=== PATIENT | female | born 1960 | race Caucasian/White ===

== ENCOUNTER 2019-07-05 03:19 | Observation (INO) ==
[2019-07-05] MEDS ORDERED: NS 1,000 ML IV ONE (03:38)
[2019-07-05] MEDS ORDERED: ZOFRAN IV ONE (03:38)
[2019-07-05] MEDS ORDERED: TORADOL IV ONE (03:38)
[2019-07-05] MEDS ORDERED: MORPHINE IV ONE (03:38)
[2019-07-05 04:24] LABS: URINE SOURCE CLEAN CATCH
[2019-07-05 04:28] LABS: BASO# 0.04 X1000 (0.0-0.2); BASO% 0.4 % (0.0-0.8); EOS# 0.46 X1000 (0.0-0.7); HEMATOCRIT 41.9 % (37.0-47.0); HEMOGLOBIN 13.9 g/dL (12.0-16.0); IMM GRAN# 0.02 X1000 (0.0-0.04); IMM GRAN% 0.2 % (0.0-0.5); LYMPH# 2.11 X1000 (1.2-3.4); LYMPH% 23.1 % (20.5-51.1); MCH 30.6 PG (27-31); MCHC 33.2 g/dL (33-37); MCV 92.3 FL (81-99); MONO# 0.87 X1000 (0.11-0.59); MONO% 9.5 % (1.7-9.3); MPV 10.1 FL (7.4-10.4); NEUT# 5.64 X1000 (1.4-6.5); NEUT% 61.8 % (42.2-75.2); PLT 226 X1000 (130-400); RBC 4.54 XMIL (4.2-5.4); RDW 12.1 % (11.5-14.5); WBC 9.14 X1000 (4.8-10.8)
[2019-07-05 04:30] LABS: BILIRUBIN URINE NEGATIVE (NEGATIVE); BLOOD URINE NEGATIVE (NEGATIVE); COLOR YELLOW; GLUCOSE URINE NEGATIVE (NEGATIVE); KETONE URINE NEGATIVE (NEGATIVE); LEUKOCYTES URINE NEGATIVE (NEGATIVE); NITRITE URINE NEGATIVE (NEGATIVE); PH URINE 6.5; PROTEIN URINE NEGATIVE (NEGATIVE); TURBIDITY URINE CLEAR (CLEAR); UROBILINOGEN URINE NORMAL (NORMAL)
[2019-07-05 04:31] LABS: UR EPITHELIAL CELLS <10 /HPF (<10); URINE BACTERIA NEGATIVE /HPF; URINE RBC <10 /HPF (<10); URINE WBC <10 /HPF (<10)
[2019-07-05] MEDS ORDERED: BENADRYL IV ONE (04:35)
[2019-07-05] MEDS ORDERED: FLAGYL 500 MG/NS 500 MG/100 ML IVPB IV ONE (04:40)
[2019-07-05] MEDS ORDERED: CIPRO 400 MG/D5W 400 MG/200 ML IVPB IV ONE (04:40)
--- NOTE | 2019-07-05 04:44 | PROVIDER DOCUMENTATION ---
HPI-General Adult - General Chief Complaint: Flank Pain Stated Complaint: BACK PAIN/ABD PAIN Time Seen by Provider: 07/05/19 03:31 Source: patient Allergies/Adverse Reactions: Patient Allergies Allergy/AdvReac Type Severity Reaction Status Date / Time No Known Allergies Allergy Verified 07/05/19 03:29 Home Medications: Home Medication List Medication Instructions Recorded Confirmed Last Taken Type PRAVAstatin [Pravachol] 20 mg PO DAILY 05/08/14 07/05/19 3 Days Ago History ~07/02/19 Citalopram [Celexa] 40 mg PO DAILY 08/30/14 07/05/19 3 Days Ago History ~07/02/19 Amphetamine Salts [Adderall] 20 mg PO DIRECTED 05/01/17 07/05/19 3 Days Ago History ~07/02/19 Clonazepam 1 tab PO HS 05/01/17 07/05/19 07/04/19 History Bupropion HCl [Wellbutrin Xl] 300 mg PO DAILY 07/05/19 07/05/19 3 Days Ago History ~07/02/19 Trazodone [Desyrel] 50 mg PO QHS 07/05/19 07/05/19 07/04/19 History - History of Present Illness -Gen Adult Nature of Presenting Problems: Pt presents with left flank pain, x a couple of days, constant, no radiation, similar to prior diverticulitis, pt denies f/c, bach, cp, sob, cough, n/v/d. Pt is lying in bed in no acute distress. Location of Pain/Injury: reports: abdomen Pain Radiation: reports: flank (L) Quality of Pain: reports: sharp Severity: reports: moderate Onset/Duration: reports: 2 days ago Timing: reports: still present Context/Activities at Onset: reports: none Modifying Factors: improves with: nothing Associated Symptoms: reports: denies symptoms Similar Symptoms Previously?: Yes Recently seen or treated by another doctor?: No Review of Systems - Adult - REVIEW OF SYSTEMS - ADULT Constitutional: reports: no symptoms reported Eyes: reports: no symptoms reported Ears, Nose, Mouth & Throat: reports: no symptoms reported Cardiovascular: reports: no symptoms reported Respiratory: reports: no symptoms reported Gastrointestinal: reports: see HPI Genitourinary: reports: no symptoms reported Musculoskeletal: reports: no symptoms reported Integumentary: reports: no symptoms reported Neurological: reports: no symptoms reported Psychiatric: reports: no symptoms reported Endocrine: reports: no symptoms reported Hematologic/Lymphatic: reports: no symptoms reported Allergic/Immunologic: reports: no symptoms reported All Other Systems: Reviewed and Negative Past History - Adult - PAST MEDICAL HISTORY-ADULT Review of Records: reports: Old Records Reviewed, Nursing Assessment Review, Medications Reviewed, Social history reviewed & non-contributory. Major Childhood Illnesses: reports: denies history Cardiovascular: reports: hyperlipidemia Respiratory: reports: denies history Gastrointestinal: reports: denies history Obstetrical/Gynecological: reports: denies history Genitourinary: reports: denies history Musculoskeletal: reports: denies history Neurological: reports: denies history Psychiatric: reports: anxiety Endocrine/Immune: reports: denies history Other Conditions: reports: denies history - PRIOR SURGERIES/PROCEDURES Surgical/Procedure History: reports: hysterectomy, BTL - IMMUNIZATION STATUS Childhood Immunizations: See Nurse Assessment Flu Vaccine: See Nurse Assessment - FAMILY HISTORY Family History: CVA/TIA, other (brain anur.) Physical Exam-General - PHYSICAL EXAM-ADULT Initial Vital Signs Reviewed: Yes - CONSTITUTIONAL General Appearance: appears well - EYES Eyes: PERRL/EOMI - HEAD, EARS, NOSE, MOUTH & THROAT HENMT: normocephalic/atraumatic - NECK Neck: non-tender - RESPIRATORY Respiratory: lungs clear, no respiratory distress, no accessory muscle use - CARDIOVASCULAR Cardiovascular: regular rate, rhythm - GASTROINTESTINAL (ABDOMEN) Abdominal Exam: normal bowel sounds, non tender, soft, no organomegaly - LYMPHATIC Lymphatic: no adenopathy - MUSCULOSKELETAL Back Exam: normal inspection Extremity: normal range of motion - SKIN Integumentary: normal color - NEUROLOGIC Neurologic: grossly normal - PSYCHIATRIC Psych/Mental Status: normal mood/affect Progress - PLAN OF CARE/RESULTS Progress/Plan/Lab Results: Vital Signs - 8 hr 07/05/19 03:22 Temperature 97.5 F L Pulse Rate 93 H Respiratory Rate 18 Blood Pressure 150/106 O2 Sat by Pulse Oximetry 99 Laboratory Results - last 24 hr 07/05/19 07/05/19 04:10 04:10 WBC 9.14 RBC 4.54 Hgb 13.9 Hct 41.9 MCV 92.3 MCH 30.6 MCHC 33.2 RDW Std Deviation 12.1 Plt Count 226 MPV 10.1 Immature Gran % (Auto) 0.2 Neut % (Auto) 61.8 Lymph % (Auto) 23.1 [place] % (Auto) 9.5 H Eos % (Auto) 5.0 Baso % (Auto) 0.4 Immature Gran # (Auto) 0.02 Neut # (Auto) 5.64 Lymph # (Auto) 2.11 [place] # (Auto) 0.87 H Eos # (Auto) 0.46 Baso # (Auto) 0.04 Urine Source CLEAN CATCH Urine Color YELLOW Urine Turbidity CLEAR Urine pH 6.5 Ur Specific [place] 1.010 Urine Protein NEGATIVE Ur Glucose (Stick) NEGATIVE Ur Ketones (Stick) NEGATIVE Urine Blood NEGATIVE Urine Nitrite NEGATIVE Urine Bilirubin NEGATIVE Urobilinogen Dipstick NORMAL Urine Leukocytes NEGATIVE Urine WBC (Auto) <10 Urine RBC (Auto) <10 U Epithel Cells (Auto) <10 Urine Bacteria (Auto) NEGATIVE Orders Category Date Time Status CT ABDOMEN/PELVIS W/O CONTRAST [CT] Stat Exams 07/05/19 03:38 Taken CBC WITH ELECTRONIC DIFF [HEME] Stat Lab 07/05/19 04:10 Completed COMPREHENSIVE METABOLIC PANEL [CHEM] Stat Lab 07/05/19 04:10 Received LACTATE, PLASMA [CHEM] Stat Lab 07/05/19 04:10 Received LIPASE [CHEM] Stat Lab 07/05/19 04:10 Received UA [URINALYSIS W/POSS RFLX CULT] [URINALYSIS] Stat Lab 07/05/19 04:10 Completed 0.9% Sodium Chloride Inj [Ns] 1,000 ml Med 07/05/19 03:38 Discontinued IV 999 mls/hr Ciprofloxacin 400 mg/D5w IV Now Med 07/05/19 04:40 Ordered Ciprofloxacin 400 mg/D5w [Cipro 400 mg/D5w] 400 mg in 200 ml IV NOW Diphenhydramine [Benadryl] Med 07/05/19 04:35 Discontinued 25 mg IV NOW ONE Flagyl 500 mg IV Now Med 07/05/19 04:40 Ordered Metronidazole 500 mg/Ns [Flagyl 500 mg/Ns] 500 mg in 100 ml IV NOW Ketorolac [Toradol] Med 07/05/19 03:38 Discontinued 30 mg IV NOW ONE Morphine Med 07/05/19 03:38 Discontinued 4 mg IV NOW ONE Ondansetron [Zofran] Med 07/05/19 03:38 Discontinued 4 mg IV NOW ONE Result Diagrams: 09/17/19 04:10 Departure - Departure Date of Disposition Decision: 07/05/19 Time of Disposition Decision: 05:15 DIAGNOSIS: Diverticulitis Disposition: ADMITTED INPATIENT 09 Certified Medical Emergency: Emergent Condition: Stable Referrals and Follow-Ups: Barber Shah MD [Primary Care Provider] - - Critical Care Note This patient required my direct & personal management of CC.: No Attestation - Physician/ LIDIA Attestation Patient care was provided by Advanced Practice Provider:: No The physician spent face to face time with patient:: Yes Advanced Practice Provider documentation review:: Supervising physician onsite and consulted in the evaluation and care of this patient. The physician did have a face to face encounter with the patient.
[2019-07-05 05:19] LABS: AGAP 15; ALB/GLOB RATIO 1.4; ALBUMIN 4.2 g/dL (3.5-5.0); ALKALINE PHOSPHATASE 97 U/L (32-104); BUN 17 mg/dL (8-22); CALCIUM 9.1 mg/dL (8.8-10.2); CHLORIDE 102 mmol/L (98-107); COSMO 289; CREATININE 0.7 mg/dL (0.5-0.9); ESTIMATED GFR > 60; GLUCOSE 77 mg/dL (70-104); GOT 13 U/L (10-30); GPT 9 U/L (10-36); LIPASE 37 U/L (13-60); POTASSIUM 3.8 mmol/L (3.5-5.1); SODIUM 145 mmol/L (136-145); TCO2 28 mmol/L (25-35); TOTAL BILIRUBIN 0.15 mg/dL (0.20-1.00); TOTAL PROTEIN 7.1 g/dL (6.3-8.3)
[2019-07-05] MEDS ORDERED: SODIUM CHLORIDE 0.9% INJ SCH (05:55)
[2019-07-05] MEDS ORDERED: PROTONIX IV SCH (05:55)
[2019-07-05] MEDS ORDERED: FLAGYL 500 MG/NS 500 MG/100 ML IVPB ONE (06:04)
[2019-07-05] MEDS: NS 1,000 ML IV SCH (06:14)
--- NOTE | 2019-07-05 06:24 | HISTORY AND PHYSICAL ---
CHIEF COMPLAINT/HISTORY OF PRESENT ILLNESS: Left abdominal and flank pain since last Thursday, constant with continuing worsening until today when she stopped being able to stand the pain, so she came into the emergency room. Similar to her last bout with diverticulitis. She denies any fever, chills, chest pain, shortness of breath, cough, nausea or vomiting. She did have diarrhea last Thursday. Denied any hematochezia or melena. She has other past medical history of hypertension, hyperlipidemia, anxiety and depression. A CT scan was done in the emergency room that showed diverticulitis with a possible microperforation. She will be admitted for further evaluation and treatment. PAST MEDICAL HISTORY: See HPI. PREVIOUS SURGICAL HISTORY: Hysterectomy, surgery on her ureter. FAMILY HISTORY: Positive for myocardial infarction and brain aneurysm SOCIAL HISTORY: Lives with her . Smokes 1 pack of cigarettes per week. Very occasional alcohol. No illicit drugs. ALLERGIES: No known drug allergies. HOME MEDICATIONS: Adderall 20 mg p.o. p.r.n., Wellbutrin 300 mg p.o. daily, Celexa 40 mg p.o. daily, clonazepam 1 mg p.o. at bedtime, pravastatin 20 mg p.o. daily, trazodone 50 mg p.o. at bedtime. REVIEW OF SYSTEMS: Fourteen-point review of systems conducted with the patient. Pertinent positives listed above in the HPI. All other systems reviewed and found to be negative. PHYSICAL EXAMINATION: VITAL SIGNS: Temperature 97.5, pulse 93, respirations 18, blood pressure 150/106, oxygen saturation 99% on room air. GENERAL: Pleasant 59-year-old female lying in the ER stretcher. Answers all questions appropriately. She is alert and oriented x3. HEENT: Head is atraumatic, normocephalic. Pupils equal, round, reactive to light. Extraocular eye movement is intact. Sclerae are anicteric. Conjunctivae is pink. Oral mucosa is dry. NECK: Supple. No JVD. No thyromegaly. Trachea is midline. No cervical lymphadenopathy. CARDIAC: S1, S2 appreciated. No murmurs, gallops or rubs. LUNGS: Clear to auscultation bilaterally. No rhonchi, wheezes or rales. Symmetric rise and fall with respirations. ABDOMEN: Soft, nondistended, tender in the lower quadrants, especially on the left side. Rebound tenderness noted. No pulsatile mass. No organomegaly. Bowel sounds hypoactive in all 4 quadrants. EXTREMITIES: No clubbing, cyanosis or edema. Two-plus pedal pulses bilaterally. GENITOURINARY: No bladder distention. Patient voids. Otherwise deferred. NEUROLOGICAL: Alert and oriented x3. No focal motor deficits, otherwise nonfocal examination. DIAGNOSTIC DATA: CT of the abdomen showed diverticulitis with possible microperforation. LABORATORY DATA: Grossly normal. Urine unremarkable. ASSESSMENT AND PLAN: 1. Diverticulitis with possible microperforation. Will give Flagyl and Cipro, morphine as needed for pain. N.p.o. at this time. Will consult Dr. Franklin with Surgery as well as Dr. Parsons with Gastroenterology. 2. History of hypertension. Patient was hypertensive on arrival. She is normotensive after he pain is under control. She does not take home medications any more. Will continue to monitor. 3. Hyperlipidemia. Continue statin when patient continues taking p.o. 4. Tobacco use. Smoking cessation was done over with the patient. She states that she is working on quitting. She has cut back and does not need a NicoDerm patch. 5. Further recommendations per the patient's clinical course. Dictated by YIMI Hendricks for José Miguel Vargas MD cc: YIMI Hendricks MD Samuel Gillespie, MD Independent exam was notable for rebound tenderness without any guarding. Answered pt and family member's questions. This could still be managed conservatively. Discussed above plan with PASTORAL WORKER. SAAD
[2019-07-05 07:06] LABS: INR 0.93; PROTIME 12.6 Seconds (11.0-16.0); PTT 36.1 Seconds (22.3-41.8)
--- NOTE | 2019-07-05 07:35 | Diag Imaging Result Doc PS360 ---
EXAM: CT ABDOMEN/PELVIS W/O CONTRAST 07/05/2019 HISTORY: left flank pain TECHNIQUE: This exam was performed using automated exposure control, adjustment of mA or kV according to patient size, and/or use of iterative reconstruction technique. COMMENT: There is no evidence of acute disease in the visualized portion of the chest. There are stones layering dependently in the gallbladder. There is a fair amount of retained gastric contents. The possibility of gastroparesis cannot be excluded and correlation with the patient's history is recommended. The liver is unremarkable given the lack of contrast. There is no evidence of nephrolithiasis. There is some dilatation of the collecting system particularly the renal pelvis on the left. No evidence of ureterolithiasis is present. The urinary bladder is not particularly distended. There is stool throughout the colon. There is diverticulosis in the sigmoid colon and apparent diverticulitis in the distal descending colon. There is some localized paracolic fluid without definite abscess. This was not present on 05/01/2017. IMPRESSION: Distal descending diverticulitis. Electronically signed by Ruslan Kc 07/05/2019 7:32 AM
[2019-07-05] MEDS: MORPHINE IV PRN ×3 (09:57→21:00)
[2019-07-05] MEDS: CELEXA PO SCH (09:58)
[2019-07-05] MEDS: ZOFRAN IV PRN ×3 (09:58→21:00)
[2019-07-05] MEDS: FLAGYL 500 MG/NS 500 MG/100 ML IVPB IV SCH ×2 (11:04→17:35)
--- NOTE | 2019-07-05 13:04 | GENERAL SURGERY CONSULTATION ---
DATE: 07/05/2019 REQUESTING PHYSICIAN: Hospitalist. REASON FOR CONSULTATION: Consult is concerning perforated diverticulitis. HISTORY OF PRESENT ILLNESS: A 59-year-old female with left abdominal pain and left flank pain starting Vincent. Presented to the emergency department with abdominal pain. She had issues with diverticulitis before and has actually had her reimplantation of her ureter on the left side for diverticulitis secondary to a stricture from the diverticulitis. She has been followed by Dr. Farooq for gastroenterology but has not required any kind of surgical intervention. She came in now with worsening pain. A CT scan showed there may be a possible perforation of her descending colon, although it looks contained. She is feeling a little bit better since she was admitted. PAST MEDICAL HISTORY: Includes history of diverticulitis, history of hypertension, hyperlipidemia, anxiety, depression. PAST SURGICAL HISTORY: Includes hysterectomy and ureteral reimplantation. FAMILY HISTORY: Positive for myocardial infarction, brain aneurysm, and issues with colon. SOCIAL HISTORY: Lives with . Current smoker. ALLERGIES: None. HOME MEDICATIONS: In MAR, reviewed. Of note, she is on Cipro and Flagyl. REVIEW OF SYSTEMS: A full 14 systems were reviewed and negative except as specified in the HPI. PHYSICAL EXAMINATION: Vital Signs: The patient is currently afebrile. Her vital signs are stable. General Examination: No acute distress. HEENT: Normocephalic, atraumatic. Pupils equal, round, reactive to light. Mucous membranes moist. Oropharynx benign. Neck: Supple. Trachea midline. Cardiovascular: Regular rate and rhythm. Lungs: Grossly clear. Abdomen: Soft. Tender to palpation in the left lower quadrant and left flank. No peritoneal signs. Extremities: Moves all extremities. Neurologic: Grossly intact. Skin: No signs of jaundice. Vascular: All extremities perfused. LABORATORY: White blood count is normal. There is no left shift. Hematocrit is normal. Remainder of labs are normal. CT scan independently reviewed and radiology report reviewed, and noted above. ASSESSMENT AND PLAN: A 59-year-old female with perforated diverticulitis. 1. Perforated diverticulitis. At this time, I agree with current treatment. She is on intravenous antibiotics, which I agree. She is nothing per oral so we will continue that. I would like to try to get her over this episode without surgery and then have an outpatient colonoscopy with the patient. She has had several episodes and had complications for diverticulitis with ureteral stents so she may need to entertain surgical intervention but I suspect her anatomy is different secondary to reimplantation, so it might be a difficult operation, so we will need to discuss with her extensively as an outpatient but in the meantime, we will again treat her with intravenous antibiotics. 2. Multiple medical comorbidities including hypertension, hyperlipidemia, and previous surgical intervention, does complicate her medical treatment but she is being followed by her primary care physician. We will continue to follow. I appreciate the consult. cc: Scar Garcia MD
--- NOTE | 2019-07-05 14:42 | GASTROENTEROLOGY CONSULTATION ---
DATE: 07/05/2019 PRIMARY PHARMACY ANALYST: Dr. Farooq. REASON FOR CONSULTATION: Diverticulitis. HISTORY OF PRESENT ILLNESS: Ms. Katie Pfeiffer is a 59-year-old woman with past medical history of hyperlipidemia, sleep apnea, chronic migraines, history of anxiety, ADD, and diverticulitis in April of 2012, who presents with 4 days of left lower quadrant pain that she describes as sharp and stabbing. She says she developed acute onset pain up to 10/10 with associated chills 4 days ago, which is similar to her prior presentation of diverticulitis. She denies any nausea, vomiting, chest pain, shortness of breath, fevers, diaphoresis, diarrhea, constipation or rectal bleeding. Her last colonoscopy was in 2013, which was unremarkable for colon lesions. She does have diverticulosis. REVIEW OF SYSTEMS: As per HPI, otherwise 12 point review of systems negative. PAST MEDICAL HISTORY: As per HPI. Other notable history includes a history of hydronephrosis requiring left ureteral stent and surgical repair. PAST SURGICAL HISTORY: Surgical repair of hydronephrosis from obstructive uropathy in the setting of recent diverticulitis in 2011, in the past. FAMILY HISTORY: No family history of GI malignancies. SOCIAL HISTORY: She smokes 1 pack per week. Rare alcohol. No drug use. MEDICATIONS: Citalopram, clonazepam, Adderall, Wellbutrin. She takes NSAIDs rarely p.r.n. ALLERGIES: No known drug allergies. PHYSICAL EXAMINATION: Vital Signs: Temperature is 97.6 degrees, heart rate 65, respiratory rate 18, blood pressure 135/77, O2 saturation 96% on room air. General: Patient is awake, alert, oriented, no acute distress. HEENT: Sclerae anicteric. Moist mucous membranes. Extraocular motor intact. Neck: Supple. No JVD or lymphadenopathy. Cardiac: Regular rate and rhythm. No murmurs, rubs, or gallops. Lungs: Clear to auscultation bilaterally. No wheeze. Abdomen: Soft. Mild tenderness to palpation in the left lower quadrant. No rebound or guarding. Bowel sounds are present. Extremities: No clubbing, cyanosis, or edema. Neurologic: Nonfocal. LABS AND X-RAYS: White count of 9.14, hemoglobin 13.9, platelets of 226. INR 0.93. BMP is normal. UA is negative. CT abdomen and pelvis without contrast shows distal descending diverticulitis. There are some gallstones without acute cholecystitis, some dilation of the renal pelvis on the left. ASSESSMENT AND PLAN: Ms. Katie Pfeiffer is a 59-year-old woman who presents with acute recurrent noncomplicated diverticulitis of the descending colon. She is currently on Cipro and Flagyl. She is on nothing by mouth. She is on antiemetics and proton pump inhibitor. We will stop proton pump inhibitor therapy, start her on clear liquid diet. She has been seen by Surgery, who recommended medical management for now. No indication for repeat colonoscopy post diverticulitis, given she has had a colonoscopy in the past and has been ruled out for colon cancer already. No family history of GI malignancies. Advance diet to clears today. If she tolerates that, we can advance to GI soft tomorrow and probably discharge with a 10-day course of antibiotics. Thank you for this consult. We will follow with you. Please call with any questions or concerns.
--- NOTE | 2019-07-05 16:12 | PROGRESS NOTE ---
DATE: 07/05/2019 SUBJECTIVE: The patient feels better. Pain has improved. OBJECTIVE: Vital Signs: Blood pressure is 108/76, heart rate of 67, respiratory rate 18, temperature 97.9 degrees, satting 97% on room air. Cardiovascular: Regular rate and rhythm. Pulmonary: Bilateral breath sounds. Clear to auscultation. GI: Soft, nontender, nondistended. Bowel sounds are positive. LABORATORY DATA: White count is 9. Really all her labs look okay PROBLEM LIST: Diverticulitis of the descending colon with questionable microperforation. She is pretty constipated too, and no abscess. We will continue antibiotics. She is on Flagyl and presumably Cipro, pain medicine, intravenous fluids. Clinically she is improving. Her diet has been advanced per Dr. Wheeler. Obviously, I do not think she is amenable to colonoscopy at this time due to the risk of perforation, and then I guess she had a recent colonoscopy. cc: Simone Gracia MD
[2019-07-05] MEDS: CIPRO 400 MG/D5W 400 MG/200 ML IVPB IV SCH (18:36)
[2019-07-05] MEDS ORDERED: DESYREL PO SCH (21:00)
[2019-07-05] MEDS ORDERED: KLONOPIN PO SCH (21:00)
[2019-07-05] MEDS: PRAVACHOL PO SCH (21:14)
[2019-07-06] MEDS: NS 1,000 ML IV SCH (00:18)
[2019-07-06] MEDS: FLAGYL 500 MG/NS 500 MG/100 ML IVPB IV SCH ×3 (00:18→12:10)
[2019-07-06] MEDS: CIPRO 400 MG/D5W 400 MG/200 ML IVPB IV SCH (05:10)
[2019-07-06 07:13] LABS: BASO# 0.03 X1000 (0.0-0.2); BASO% 0.4 % (0.0-0.8); EOS# 0.35 X1000 (0.0-0.7); EOS% 4.3 % (0.0-10.0); HEMATOCRIT 37.9 % (37.0-47.0); HEMOGLOBIN 12.4 g/dL (12.0-16.0); LYMPH# 1.68 X1000 (1.2-3.4); LYMPH% 20.8 % (20.5-51.1); MCH 30.3 PG (27-31); MCHC 32.7 g/dL (33-37); MCV 92.7 FL (81-99); MONO# 0.65 X1000 (0.11-0.59); MONO% 8.1 % (1.7-9.3); MPV 10.1 FL (7.4-10.4); NEUT# 5.36 X1000 (1.4-6.5); NEUT% 66.4 % (42.2-75.2); PLT 212 X1000 (130-400); RBC 4.09 XMIL (4.2-5.4); RDW 11.8 % (11.5-14.5); WBC 8.07 X1000 (4.8-10.8)
[2019-07-06 07:50] LABS: AGAP 9; BUN 8 mg/dL (8-22); CALCIUM 8.5 mg/dL (8.8-10.2); CHLORIDE 104 mmol/L (98-107); COSMO 279; CREATININE 0.8 mg/dL (0.5-0.9); ESTIMATED GFR > 60; GLUCOSE 130 mg/dL (70-104); POTASSIUM 4.2 mmol/L (3.5-5.1); SODIUM 140 mmol/L (136-145); TCO2 27 mmol/L (25-35)
--- NOTE | 2019-07-06 09:34 | PROVIDER PROGRESS NOTE ---
Progress Note SUBJECTIVE: Ms. Pfeiffer was sitting in the bed having her breakfast. She denies having any bowel movement from Thursday on wards. She has denied any nausea and vomiting, but c/o of abdominal pain on the left lower quadrant. VITAL SIGNS: Temperature 97.9 degrees, Pulse 67, Respiration 19, Blood Pressure 103/64, O2 96% on RA. body weight 130 pounds, BMI 23.0 KF per meter square. General: AO x 3, sitting in the bed, no acute distress. HEENT: pale conjunctiva, no icterus, PERRLA Neck: Supple Lungs: Clear to auscultation in the anterior and posterior her. No abnormal breath sounds noted. Cardiovascular: Regular rate and rhythm, no murmurs, rubs, or gallops heard, S1 S2 heard on auscultation Abdomen: Soft, mild tenderness in the left lower quadrant on palpation, no rebound tenderness. Extremities: no edema, cyanosis, or clubbing noted Neuro: AO x 3 Labs: WBS 8.07, RBC 4.09, [id number], Hematocrit 37.9, Platelet [id number], sodium 140, Potassium 4.2, BUN 8, Creatining 0.8, calcium 8.5 CT scan done on 07/05/19 impression - distal descending diverticulitis. IMPRESSION AND PLAN: 1. Diverticulitis of the descending colon with questionable microperforation. 2. Constipation 3. Nausea and Vomiting 4. Hypertension aware PLAN; Currently on antibiotics Cipro and flagyl, antiemetic for nausea, IV fluids, she is on clear liquid will advance as tolerated, antiemetic for nauses and vomiting, This plan was discussed with Dr. Wheeler and patient, patient verbalized understanding of the instruction. Please call us with any questions or concerns. (Brenda Sandoval)
--- NOTE | 2019-07-06 09:50 | GENERAL SURGERY PROGRESS NOTE ---
DATE: 07/06/2019 SUBJECTIVE: Patient seems to be doing well. She is not hurting as much. OBJECTIVE: Vital Signs: The patient is currently afebrile. Her vital signs are stable. General Exam: No acute distress. HEENT: Normocephalic, atraumatic. Pupils equal, round, reactive to light. Mucous membranes moist. Oropharynx benign. Neck: Supple. Trachea midline. Cardiovascular: Regular rate and rhythm. Lungs: Grossly clear. Abdomen: Soft. Some mild tenderness in the left flank and left lower quadrant, but no peritoneal signs. Extremities: Moves all extremities. Neurologic: Grossly intact. Skin: No signs of jaundice. Vascular: All extremities perfused. LABORATORY: None this morning as of yet. ASSESSMENT AND PLAN: A 59-year-old female with micro perforation for diverticulitis. 1. Diverticulitis. At this time, we will consider this complicated diverticulitis. She does have a history of diverticulitis. She is clinically improving with intravenous antibiotics. We will advance to a full liquid diet, and see how she does. Hopefully, we can continue nonoperative management on her. cc: Scar Garcia MD
[2019-07-06] MEDS: CELEXA PO SCH (10:02)
[2019-07-06] MEDS: PRAVACHOL PO SCH (10:02)
[2019-07-06 15:31] VITALS: BP 151/78
--- NOTE | 2019-07-07 12:40 | DISCHARGE SUMMARY ---
ADMISSION DATE: 07/05/2019 DISCHARGE DATE: 07/06/2019 DISCHARGE DIAGNOSES: Acute diverticulitis with a small perforation. HISTORY AND HOSPITAL COURSE: Briefly, the patient admitted 07/05/2019, discharge date 07/06/2019. She was admitted for abdominal pain. CT showed diverticulitis with possible microperforation. She had no free air. She did have pain and discomfort. She did not have a white count. She was made n.p.o., placed on antibiotics. The following morning of the , she felt better. She was advanced to clears per Dr. Wheeler. The day after, she felt better and she was advanced to a soft diet which she tolerated without difficulty and she was felt stable for discharge. DISCHARGE MEDICATIONS: Cipro 500 q.12 for another 10 days, Flagyl 500 t.i.d. for another 10 days, MiraLAX 17 daily, [place] p.r.n., Wellbutrin 300 daily, Pravachol 20 daily, Adderall 20 daily, Desyrel 50 at bedtime. FOLLOWUP: She is to follow up with Dr. Wheeler in a couple of weeks, make sure that she gets outpatient colonoscopy, and also her PCP is Dr. Shah. cc: Simone Gracia MD
== END 2019-07-06 18:03 | disposition home or self-care (01) ==
LOC: ED 03:19 → SUATTDRO 03:20 → EDIPHOLD 03:20 → INTOOBSV 03:20 → 3N 07:50
PROVIDERS: ATTEND Internal Medicine